=== PATIENT | female | born 1970 | race Caucasian/White ===

== ENCOUNTER 2017-09-12 13:10 | Emergency (ER) | payer OTHER ==
[~2017-09-12] VITALS: Ht 157.5 cm; Wt 62.6 kg
[~2017-09-12 13:10] MED LIST: ALEVE220 MG; BACTRIM DS TABL1 TAB PO; IBUPROFEN800 MG PO; PYRIDIUM200 MG PO; TOPROL XL25 M1
== END 2017-09-12 19:36 | disposition home or self-care (01) ==
LOC: ER 13:10
DX: R21 Rash and other nonspecific skin eruption (principal); T78.49XA Other allergy, initial encounter; X58.XXXA Exposure to other specified factors, initial encounter

== ENCOUNTER 2019-05-13 13:02 | Emergency (ER) | payer OTHER ==
[~2019-05-13] VITALS: Ht 157.5 cm; Wt 67.1 kg
[2019-05-13] MEDS ORDERED: TOPROL XL25 M1 PO (13:10)
== END 2019-05-13 19:13 | disposition home or self-care (01) ==
LOC: ER 13:02
DX: K29.60 Other gastritis without bleeding (principal); K82.4 Cholesterolosis of gallbladder; R10.13 Epigastric pain

== ENCOUNTER 2020-05-11 10:54 | Emergency (ER) | payer OTHER ==
[~2020-05-11] VITALS: Ht 157.5 cm; Wt 63.5 kg
[~2020-05-11 10:54] MED LIST changes: +TOPROL XL25 M1 PO
[2020-05-11] MEDS ORDERED: MAALOX ADVANCE355 ML PO (17:41)
[2020-05-11] MEDS ORDERED: PREVACID30 MG PO (17:41)
[2020-05-11] MEDS ORDERED: PEPCID AC20 MG PO (17:41)
[2020-05-11] MEDS ORDERED: CARAFATE1 GM PO (17:41)
== END 2020-05-11 17:53 | disposition home or self-care (01) ==
LOC: ER 10:54
DX: K29.00 Acute gastritis without bleeding (principal); R10.11 Right upper quadrant pain; K82.4 Cholesterolosis of gallbladder; Z20.828 Contact with and (suspected) exposure to other viral communicable diseases

== ENCOUNTER 2020-10-04 14:49 | Emergency (ER) | payer OTHER ==
[~2020-10-04] VITALS: Ht 157.5 cm; Wt 67.1 kg
[~2020-10-04 14:49] MED LIST changes: +CARAFATE1 GM PO; +MAALOX ADVANCE355 ML PO; +PEPCID AC20 MG PO; +PREVACID30 MG PO
== END 2020-10-04 19:25 | disposition home or self-care (01) ==
LOC: ER 14:49
DX: S60.222A Contusion of left hand, initial encounter (principal); W18.39XA Other fall on same level, initial encounter; Y93.89 Activity, other specified; Y92.89 Other specified places as the place of occurrence of the external cause; Y99.8 Other external cause status

== ENCOUNTER 2021-03-16 10:33 | Outpatient (CLI) | payer OTHER | END 2021-03-16 10:35 | disposition home or self-care (01) | LOC: SONOGRAMA 10:33 → MAMO-SONO 13:30 | PROVIDERS: ATTEND General Practice | DX: N93.8 Other specified abnormal uterine and vaginal bleeding (principal) ==

== ENCOUNTER 2021-08-13 15:24 | Emergency (ER) | payer OTHER ==
[~2021-08-13] VITALS: Ht 157.5 cm; Wt 65.8 kg
== END 2021-08-13 20:39 | disposition home or self-care (01) ==
LOC: ER 15:24
DX: D21.9 Benign neoplasm of connective and other soft tissue, unspecified (principal); N83.202 Unspecified ovarian cyst, left side; N88.8 Other specified noninflammatory disorders of cervix uteri

== ENCOUNTER 2021-11-07 15:11 | Emergency (ER) | payer OTHER ==
[~2021-11-07] VITALS: Ht 157.5 cm; Wt 65.8 kg
[2021-11-07] MEDS ORDERED: ORPHENADRINE C100 MG PO (17:47)
[2021-11-07] MEDS ORDERED: EC-NAPROXEN375 MG PO (17:47)
== END 2021-11-07 18:04 | disposition home or self-care (01) ==
LOC: ER 15:11
DX: T14.90XA Injury, unspecified, initial encounter (principal); V49.9XXA Car occupant (driver) (passenger) injured in unspecified traffic accident, initial encounter; Y92.413 State road as the place of occurrence of the external cause; M62.838 Other muscle spasm; M62.830 Muscle spasm of back

== ENCOUNTER 2023-03-13 11:26 | Emergency (ER) | payer OTHER ==
[~2023-03-13] VITALS: Ht 157.5 cm; Wt 64.4 kg
[~2023-03-13 11:26] MED LIST changes: +EC-NAPROXEN375 MG PO; +ORPHENADRINE C100 MG PO
== END 2023-03-13 17:45 | disposition home or self-care (01) ==
LOC: ER 11:26
DX: M25.511 Pain in right shoulder (principal)

== ENCOUNTER 2023-04-27 12:08 | Emergency (ER) | payer OTHER ==
[~2023-04-27] VITALS: Ht 157.5 cm; Wt 64.0 kg
== END 2023-04-27 16:29 | disposition home or self-care (01) ==
LOC: ER 12:08
PROVIDERS: Emergency Medicine
DX: N93.8 Other specified abnormal uterine and vaginal bleeding (principal)

== ENCOUNTER 2023-07-27 16:06 | Emergency (ER) | payer OTHER ==
[~2023-07-27] VITALS: Ht 157.5 cm; Wt 62.6 kg
== END 2023-07-27 19:49 | disposition home or self-care (01) ==
LOC: ER 16:06
DX: M77.8 Other enthesopathies, not elsewhere classified (principal)

== ENCOUNTER 2024-04-30 08:37 | Emergency (ER) | payer OTHER ==
[~2024-04-30] VITALS: Ht 157.5 cm; Wt 61.7 kg
[~2024-04-30 08:37] MED LIST changes: +PAXLOVID 300-11 EAC1 PO
[2024-04-30] MEDS ORDERED: FAMOTIDINE/PF 20 MG/2 ML VIAL ONE (09:28)
[2024-04-30] MEDS ORDERED: MAGNESIUM HYDROXIDE 30 ML BLIST.PACK PO ONE (09:28)
[2024-04-30] MEDS ORDERED: HYOSCYAMINE SULFATE 0.125 MG TAB.SUBL ONE (09:28)
[2024-04-30] MEDS ORDERED: MAG HYDROX/ALUMINUM HYD/SIMETH 30 ML BLIST.PACK PO ONE (09:30)
[2024-04-30] MEDS ORDERED: HYOSCYAMINE SULFATE 0.125 MG TAB.SUBL SL ONE (09:30)
[2024-04-30] MEDS ORDERED: FAMOTIDINE/PF 20 MG/2 ML VIAL IV PUSH ONE (09:30)
[2024-04-30 10:17] LABS: HEMATOCRIT 32.7 % (36.0-45.00); HEMOGLOBIN 10.5 g/dL (12.0-15.00); MEAN CELL VOLUME 83.4 fL (80.00-100.00); MEAN CORPUSCULAR HEMOGLOBIN 26.9 pg (27.00-32.0); MEAN CORPUSCULAR HGB CONC 32.3 g/dl (32.0-36.0); PLATELET COUNT 292 K/uL (150-450); RED BLOOD COUNT 3.92 M/uL (4.00-6.00); RED CELL DISTRIBUTION WIDTH 15.7 % (11.5-14.5)
[2024-04-30 10:24] LABS: URINE APPEARANCE Clear; URINE BILIRRUBIN Negative (NEGATIVE); URINE BLOOD Negative; URINE COLOR Yellow; URINE GLUCOSE Negative (NEGATIVE); URINE KETONE Negative (NEGATIVE); URINE LEUKOCYTE Negative; URINE NITRATE Negative; URINE PROTEIN Negative (NEGATIVE); URINE UROBILINOGEN 0.2 E.U./dl
[2024-04-30 10:28] LABS: URINE BACTERIA 91.9 uL (0.0-1933); URINE EPITHELIAL CELLS 11.8 uL (0.0-38.8); URINE RBC 7.9 uL (0.0-20.8)
[2024-04-30 11:14] LABS: ALBUMIN 3.8 gm/dL (3.4-5.0); BILIRUBIN TOTAL 0.36 mg/dL (0.3-1.2); CALCIUM 8.7 mg/dL (8.5-10.1); CREATININE SERUM 0.62 mg/dL (0.55-1.02); GFR 101.08; GLOBULINA 3.8 G/DL (2.4-3.5); POTASSIUM 3.55 mEq/L (3.5-5.1); TOTAL PROTEIN 7.6 gm/dL (6.4-8.2)
== END 2024-04-30 15:21 | disposition home or self-care (01) ==
LOC: ER 08:38
PROVIDERS: Emergency Medicine
DX: K82.4 Cholesterolosis of gallbladder (principal); R10.13 Epigastric pain
CPT/HCPCS: 36415; 76700; 96365; 99284; J3490